=== PATIENT | female | born 1990 | race American Indian/Alaskan Native ===

== ENCOUNTER 2019-08-02 10:19 | Emergency (ER) | payer OTHER ==
--- NOTE | 2019-08-02 10:54 | Emergency Department Report ---
ED Chest Pain HPI - General Chief Complaint: Chest Pain Stated Complaint: CHEST PAIN Time Seen by Provider: 08/02/19 10:29 Source: EMS Mode of arrival: Stretcher Limitations: No Limitations - History of Present Illness Initial Comments: 29-year-old -[place] female presents to the emergency department via EMS from home with the complaints of some chest pain and what she says is numbness to the left arm. Patient says that the chest pain started last night while at rest and is still there but is greatly improved. Currently it is a dull pain, 2 out of 10 in intensity. The pain is just under the left breast and radiates towards the back. She denies any fever, shortness of breath, nausea, vomiting or diaphoresis. The left arm numbness appears to be more paresthesias as she says she does have sensation to the arm but it feels like a pins and needle sensation. There is no problem with range of motion or weakness. She denies any vision change, slurred speech or any other neurological deficits, but does complain of a very mild left-sided frontal headache. The patient has not taken anything for her symptoms prior to presentation. She did receive a full dose aspirin in route with EMS. She has a past mental history of asthma. She is a tobacco smoker but denies any illicit drug use. No family history of early cardiac disease or events. She has a primary care physician through the [employer]. - Related Data Allergies Allergy/AdvReac Type Severity Reaction Status Date / Time No Known Allergies Allergy Unverified 08/02/19 11:24 Heart Score - HEART Score History: Slightly suspicious EKG: Normal Age: < 45 Risk factors: 1-2 risk factors Troponin: < normal limit HEART Score: 1 - Critical Actions Critical Actions: 0-3 pts:0.9-1.7%risk of adverse cardiac event.Candidate for discharge ED Review of Systems ROS: Stated complaint: CHEST PAIN Other details as noted in HPI Comment: All other systems reviewed and negative Constitutional: denies: chills, fever Eyes: denies: eye pain, vision change ENT: denies: ear pain, throat pain Respiratory: denies: cough, shortness of breath Cardiovascular: chest pain. denies: palpitations Gastrointestinal: denies: abdominal pain, vomiting Genitourinary: denies: dysuria, discharge Musculoskeletal: back pain. denies: joint swelling, arthralgia Skin: denies: rash, lesions Neurological: headache, paresthesias. denies: numbness ED Past Medical Hx - Past Medical History Previous Medical History?: Yes Hx Asthma: Yes Additional medical history: Anxiety - Surgical History Past Surgical History?: Yes Additional Surgical History: Orthoscopic-R shoulder - Social History Smoking Status: Never Smoker Substance Use Type: Marijuana ED Physical Exam - General Limitations: No Limitations - Other Other exam information: GENERAL: The patient is well-developed well-nourished. HENT: Normocephalic. Atraumatic. Patient has moist mucous membranes. EYES: Extraocular motions are intact. Pupils equal reactive to light bilater ally. No nystagmus. NECK: Supple. Trachea is midline. CHEST/LUNGS: Clear to auscultation. There is no respiratory distress noted. HEART/CARDIOVASCULAR: Regular. There is no tachycardia. There is no murmur. ABDOMEN: Abdomen is soft, nontender. Patient has normal bowel sounds. Obese habitus. SKIN: Skin is warm and dry. NEURO: The patient is awake, alert, and oriented. The patient is cooperative. The patient has no focal neurologic deficits. Normal speech. Cranial nerves II through XII grossly intact. No pronator drift. No dysmetria. MUSCULOSKELETAL: There is no tenderness or deformity. There is no limitation range of motion. There is no evidence of acute injury. ED Course Vital Signs 08/02/19 08/02/19 10:28 12:07 Pulse Rate 68 Respiratory 20 16 Rate Blood Pressure 127/69 132/66 [Left] O2 Sat by Pulse 97 97 Oximetry KAZ score - Kaz Score Age > 65: (0) No Aspirin use within the Past 7 Days: (0) No 3 or more CAD Risk Factors: (0) No 2 or more Angina events in past 24 hrs: (0) No Known CAD with more than 50% Stenosis: (0) No Elevated Cardiac Markers: (0) No ST Deviation Greater than 0.5mm: (0) No KAZ Score: 0 ED Medical Decision Making - Lab Data Result diagrams: 08/02/19 10:50 08/02/19 10:50 - EKG Data -: EKG Interpreted by Ut EKG shows normal: sinus rhythm, axis, intervals, QRS complexes, ST-T waves Rate: normal - EKG Data When compared to previous EKG there are: previous EKG unavailable Interpretation: normal EKG - Radiology Data Radiology results: image reviewed interpreted by me: Chest x-ray does not show any acute process. There are no pleural effusions, obvious pneumonia and there is no pneumothorax. - Medical Decision Making This patient presents with the complaint of some left-sided chest pain with radiation towards the back, as well as some left arm paresthesias. On examination the patient does not appear in any acute distress. Heart and lung sounds are normal to auscultation. Patient does not have any focal, motor or sensory deficits in her cranial nerves are intact. Her left upper extremity is neurovascularly intact. She has no signs of any numbness or decreased sensation or any restriction to range of motion. EKG did not show any signs of ST elevation NM, dysrhythmia or ischemia. Chest x-ray did not show any pneumonia, pneumothorax, focal consolidation, pleural effusions, or any other acute process. Her labs have been unremarkable including negative troponins 2, CBC, metabolic panel, TSH. The patient is low on the heart and KAZ score. She is low on the well's score criteria and negative on the pulmonary embolism rule out criteria. Her vital signs have been within normal limits throughout her ED course. Patient was given a dose of Toradol with good improvement in her symptoms. For all these reasons, the patient appears safe for discharge home at this time. She has been instructed to follow-up with primary care and cardiology through her [employer] insurance. She will return to the emergency Department with any worsening of her symptoms or any acute distress. - Differential Diagnosis NM, costochondritis, GERD, paresthesias, neuropathy Critical Care Time: No Critical care attestation.: If time is entered above; I have spent that time in minutes in the direct care of this critically ill patient, excluding procedure time. ED Disposition Clinical Impression: Paresthesias Chest pain Qualifiers: Chest pain type: unspecified Qualified Code(s): R07.9 - Chest pain, unspecified Disposition: DC-01 TO HOME OR SELFCARE Is pt being admited?: No Condition: Stable Instructions: Chest Pain (ED), Paresthesia (ED) Additional Instructions: Please follow-up with your primary care physician in the next few days. I am giving you a referral for a local cardiology group, [facility], but she may need to see someone through the [employer] system. Return to the emergency Department with any worsening of your symptoms or any acute distress. Referrals: PRIMARY CARE,MD [Primary Care Provider] - 3-5 Days [facility] [Provider Group] - 3-5 Days Forms: Work/School Release Form(ED) Time of Disposition: 14:35
[2019-08-02 11:22] LABS: Basophils % (Auto) 0.6 % (0.0-1.8); Eosinophils # (Auto) 0.4 K/mm3 (0.0-0.4); Eosinophils % (Auto) 5.4 % (0.0-4.3); Hematocrit 41.4 % (30.3-42.9); Hemoglobin 13.9 gm/dl (10.1-14.3); Lymphocytes # (Auto) 1.3 K/mm3 (1.2-5.4); Lymphocytes % (Auto) 18.9 % (13.4-35.0); Mean Corpuscular HGB Conc 34 % (30-34); Mean Corpuscular Volume 85 fl (79-97); Monocytes # (Auto) 0.7 K/mm3 (0.0-0.8); Monocytes % (Auto) 9.9 % (0.0-7.3); Platelet Count 221 K/mm3 (140-440); Red Blood Count 4.86 M/mm3 (3.65-5.03); Red Cell Distribution Width 13.6 % (13.2-15.2)
[2019-08-02 11:32] LABS: INR 0.95 (0.87-1.13)
[2019-08-02 11:46] LABS: Alanine Aminotransferase 20 units/L (7-56); Albumin 4.3 g/dL (3.9-5); BUN/Creatinine Ratio 22; Blood Urea Nitrogen 13 mg/dL (7-17); Calcium 9.2 mg/dL (8.4-10.2); Hemolysis Index 15
[2019-08-02] MEDS ORDERED: KETOROLAC 30 MG/1 ML INJ IV ONE (12:40)
[2019-08-02] MEDS ORDERED: IPRATROPIUM/ALBUTEROL SULFATE 3 ML AMPUL.NEB IH ONE (12:40)
[2019-08-02 12:43] VITALS: BP 132/66
--- NOTE | 2019-08-02 13:08 | XRay Report ---
CHEST 1 VIEW INDICATION: Chest pain. COMPARISON: None. FINDINGS: Support devices: None. Heart: Normal. Lungs/Pleura: No acute pulmonary or pleural findings. IMPRESSION: 1. No acute findings. Signer Name: Alex Sanchez MD Signed: 08/02/2019 1:03 PM Workstation Name: [id number]
== END 2019-08-02 15:04 | disposition home or self-care (01) ==
LOC: ED 10:19
DX: R07.89 Other chest pain (principal); R20.0 Anesthesia of skin; R51 Headache
CPT/HCPCS: 36415; 71045; 80053; 84443; 84484; 84703; 85025; 85610; 93005; 93010; 96374; 99284; J1885